=== PATIENT | female | born 1970 | race Caucasian/White ===

== ENCOUNTER → 2021-09-11 | Outpatient (CLI) | payer OTHER ==
--- NOTE | 2021-09-11 18:29 | Diagnostic Imaging Report ---
CLINICAL INDICATIONS: Patient states that she bent over a few months ago and felt something pop and had extreme pain in left lower ribs. Patient states now still having pain when she lifts her left arm and states pain wraps around to her back. EXAM: X-ray of the left RIBS, multiple views. COMPARISON: None. FINDINGS AND IMPRESSION: 1: There is no fracture or dislocation of the left ribs. There is no significant rib abnormality. 2: There are degenerative spurs involving the lumbar spine. There is left curvature of the thoracolumbar spine. 3: Surgical clips are seen overlying the right upper quadrant which could be related to cholecystectomy changes. Dictated by: Dictated on workstation # [id number]
== END ==
LOC: RAD 14:39
PROVIDERS: ATTEND Internal Medicine
DX: M43.8X5 Other specified deforming dorsopathies, thoracolumbar region (principal); M46.06 Spinal enthesopathy, lumbar region; Z90.49 Acquired absence of other specified parts of digestive tract
CPT/HCPCS: 71100

== ENCOUNTER → 2021-11-25 | Outpatient (CLI) | payer OTHER ==
--- NOTE | 2021-11-25 14:06 | Diagnostic Imaging Report ---
INDICATION: Palpable lump in the right breast. COMPARISON: Correlation is made with the prior mammograms of 09/22/2020 and 09/15/2018. TECHNIQUE: 2D and 3D bilateral diagnostic mammography was performed with CAD. A BB marker was placed at the area of palpable abnormality in the outer right breast. FINDINGS: Scattered fibroglandular densities are noted bilaterally. No mass or malignant-appearing microcalcifications are seen. The axillae are unremarkable. IMPRESSION: No mammographic features suspicious for malignancy are identified. Even so, directed sonographic interrogation of the area of palpable abnormality is recommended and will be performed today. ACR BI-RADS Category 0: Incomplete. (Needs additional imaging evaluation). Result letter will be mailed to the patient. Note: At least 10% of breast cancer is not imaged by mammography. Dictated by: Dictated on workstation # [id number]
--- NOTE | 2021-11-25 17:37 | Diagnostic Imaging Report ---
INDICATION: Right breast mass. EXAMINATION: Right breast ultrasound. FINDINGS: Sonographic interrogation of the area of palpable abnormality in the right breast was performed. This corresponds to the 8 o'clock location, 2 cm from the nipple. There is a superficial, circumscribed hypoechoic mass at the area of palpable abnormality just below the skin surface measuring 4 mm x 4 mm x 4 mm. No internal vascularity is seen. This has the appearance of a sebaceous cyst. No other abnormality is detected. IMPRESSION: Findings suggestive of a sebaceous cyst in the subcutaneous tissues of the right breast, 8:00 location. Patient may return to routine annual screening mammography. ACR BI-RADS Category 2: Benign findings. Result letter will be mailed to the patient. Note: At least 10% of breast cancer is not imaged by mammography. Dictated by: Dictated on workstation # [id number]
== END ==
LOC: RAD 11-23 13:15
PROVIDERS: ATTEND Internal Medicine
DX: N63.10 Unspecified lump in the right breast, unspecified quadrant (principal)
CPT/HCPCS: 76642; 77066; G0279; 77062

== ENCOUNTER 2022-01-06 14:06 | Outpatient (RCR) | payer OTHER | END 2022-01-20 | disposition home or self-care (01) | LOC: ONC 14:06 | PROVIDERS: ATTEND Internal Medicine Hematology & Oncology | DX: C64.9 Malignant neoplasm of unspecified kidney, except renal pelvis (principal) | CPT/HCPCS: 99204 ==

== ENCOUNTER → 2022-01-20 | Outpatient (CLI) | payer OTHER ==
[~2022-01-20] MED LIST: CATHETER FLUSH 10 ML SYR IV PRN; HOLD METFORMIN - RECEIVED CONTRAST 20 ML VIAL IV SCH; IOHEXOL 350 MG/ML 100 ML (OMNIPAQUE 350) VIAL IV ONE; NS 100 ML (IVPB) BAG IV ONE
--- NOTE | 2022-01-20 16:14 | Diagnostic Imaging Report ---
EXAMINATION: CT chest, abdomen, and pelvis with intravenous contrast. TECHNIQUE: Multiple contiguous axial images were obtained through the chest, abdomen, and pelvis after the uneventful administration of intravenous contrast. All CT scans use one or more of the following dose optimizing techniques: automated exposure control, MA and/or KvP adjustment based on patient size and exam type or iterative reconstruction. HISTORY: Renal cancer, rib pain. COMPARISON: None available. FINDINGS: There is no edema or pneumonia. No pleural effusion. No pneumothorax. No suspicious nodules. There is no axillary or supraclavicular lymphadenopathy. There is no mediastinal lymphadenopathy. Heart size is normal. There are no coronary artery calcifications. No pericardial effusion. Aorta is normal in caliber. 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 The liver is normal without focal lesion. There is no biliary ductal dilation. Gallbladder is absent. Pancreas is normal. Spleen is normal. Adrenal glands are normal. There is fat necrosis associated with the upper pole of the right kidney, most likely related to partial nephrectomy. No recurrent disease is seen. No suspicious renal lesions. There is no hydronephrosis. Urinary bladder is normal. Bowel is normal in caliber without obstruction or inflammation. The appendix is normal. No free fluid or air. No abdominal or pelvic lymphadenopathy. Aorta is normal in caliber without aneurysm. There are no suspicious osseus lesions. IMPRESSION: No metastatic disease in the chest, abdomen, or pelvis. Dictated by: Dictated on workstation # [id number]
== END ==
LOC: RAD 11:25
PROVIDERS: ATTEND Internal Medicine Hematology & Oncology
DX: C64.9 Malignant neoplasm of unspecified kidney, except renal pelvis (principal)
CPT/HCPCS: 71260; 74177

== ENCOUNTER 2022-01-26 08:34 | Outpatient (RCR) | payer OTHER | END 2022-02-20 | disposition home or self-care (01) | LOC: ONC 08:34 | PROVIDERS: ATTEND Internal Medicine Hematology & Oncology | DX: C64.9 Malignant neoplasm of unspecified kidney, except renal pelvis (principal); R07.81 Pleurodynia | CPT/HCPCS: 99213 ==

== ENCOUNTER → 2022-11-26 | Outpatient (CLI) | payer OTHER ==
--- NOTE | 2022-11-26 10:34 | Diagnostic Imaging Report ---
INDICATION: Routine screening. COMPARISON is made with prior mammograms 11/25/2021 and 09/22/2020. 2-D and 3-D bilateral screening mammography was performed with CAD. Scattered fibroglandular densities are identified bilaterally. The parenchymal pattern is stable. No mass or malignant-appearing microcalcifications are seen. Axillae are unremarkable. IMPRESSION: BI-RADS Category 1 No mammographic features suspicious for malignancy are identified. ACR BI-RADS Category 1: Negative. Result letter will be mailed to the patient. Note: At least 10% of breast cancer is not imaged by mammography. Dictated by: Dictated on workstation # [id number]
== END ==
LOC: RAD 07:30
PROVIDERS: ATTEND Internal Medicine
DX: Z12.31 Encounter for screening mammogram for malignant neoplasm of breast (principal)
CPT/HCPCS: 77063; 77067

== ENCOUNTER → 2022-11-29 | Outpatient (CLI) | payer OTHER ==
[~2022-11-29] MED LIST changes: -CATHETER FLUSH 10 ML SYR IV PRN
--- NOTE | 2022-11-29 08:56 | Diagnostic Imaging Report ---
PROCEDURE: CT chest, abdomen, and pelvis with contrast. TECHNIQUE: Multiple contiguous axial images were obtained through the chest, abdomen, and pelvis after the administration of intravenous contrast. Auto Exposure Controls were utilized during the CT exam to meet ALARA standards for radiation dose reduction. INDICATION: History of right renal malignancy and partial nephrectomy for followup. COMPARED: 01/20/2022. CHEST: No lung mass. No suspicious pulmonary nodule. No edema or pneumonia. No thoracic adenopathy. 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 No pleural or pericardial effusion. No acute chest wall pathology. ABDOMEN AND PELVIS: Post-interventional changes to the upper pole of the right kidney, stable. No findings of residual or recurrent neoplasm. There is no hydronephrosis. The contralateral left kidney unobstructed and normal. The bilateral adrenal glands and renal veins patent and normal. There is fatty liver with prior cholecystectomy. No liver mass. Spleen and pancreas negative. There is no mesenteric or retroperitoneal adenopathy. There is a normal appendix. There is no diverticulitis. The uterus absent. No adnexal lesion. The urinary bladder normal. No suspicious bony pathology. IMPRESSION: Stable exam. No findings of metastatic disease to the chest, abdomen or pelvis and no acute pathology. Dictated by: Dictated on workstation # [id number]
== END ==
LOC: RAD 07:47
PROVIDERS: ATTEND Internal Medicine Hematology & Oncology
DX: C64.9 Malignant neoplasm of unspecified kidney, except renal pelvis (principal)
CPT/HCPCS: 71260; 74177

== ENCOUNTER 2022-12-01 11:32 | Outpatient (RCR) | payer OTHER | END 2022-12-21 | disposition home or self-care (01) | LOC: ONC 11:32 | PROVIDERS: ATTEND Internal Medicine Hematology & Oncology | DX: C64.9 Malignant neoplasm of unspecified kidney, except renal pelvis (principal) | CPT/HCPCS: 99214 ==